=== PATIENT | male | born 1995 | race Caucasian/White ===

== ENCOUNTER 2021-09-06 11:11 | Emergency (ER) | payer OTHER ==
[~2021-09-06] VITALS: Ht 165.1 cm; Wt 91.0 kg
[2021-09-06 13:03] VITALS: BP 146/88
[2021-09-06] MEDS ORDERED: IBUP-2029 MT (14:25)
== END 2021-09-06 15:10 | disposition home or self-care (01) ==
LOC: ER 11:11
DX: M79.672 Pain in left foot (principal)
CPT/HCPCS: 73630; 99283

== ENCOUNTER 2023-06-27 11:26 | Emergency (ER) | payer MEDICAID, OTHER ==
[~2023-06-27] VITALS: Ht 170.2 cm; Wt 102.0 kg
[~2023-06-27 11:26] MED LIST: IBUP-2029 MT
[2023-06-27 11:29] VITALS: O2SAT 99
[2023-06-27] MEDS ORDERED: KETOROLAC 30MG/ML VIAL IM ONE (11:45)
[2023-06-27] MEDS ORDERED: IBUP-2030 MT (13:21)
[2023-06-27 13:51] VITALS: BP 134/93; PULSE 109; RESP 16; TEMP 97.9
[2023-06-27] MEDS ORDERED: KETOROLAC 30MG/ML VIAL IM NR (13:54)
== END 2023-06-27 14:13 | disposition home or self-care (01) ==
LOC: ER 11:26
DX: M79.672 Pain in left foot (principal)
CPT/HCPCS: 99283; 73630; 96372; J1885